=== PATIENT | female | born 1995 | race Caucasian/White ===

== ENCOUNTER 2017-03-02 11:12 | Emergency (ER) | payer MEDICAID, OTHER ==
[~2017-03-02] VITALS: Ht 172.7 cm; Wt 131.5 kg
[2017-03-02] MEDS ORDERED: GILDESS (11:44)
[2017-03-02] MEDS ORDERED: METF500T4 PO (11:45)
[2017-03-02 12:19] LABS: BILIRUBIN,URINE NEGATIVE (NEGATIVE); KETONES,URINE 4+ (NEGATIVE); LEUKOCYTE ESTERASE ,URINE 1+ (NEGATIVE); NITRITE,URINE NEGATIVE (NEGATIVE); PH,URINE 6 (5-9); PROTEIN,URINE 2+ (NEGATIVE); UROBILINOGEN,URINE 1 MG/DL (NORMAL)
[2017-03-02 12:35] LABS: SQUAMOUS EPITHELIAL CELL,UR >50 /HPF; WBC,URINE RARE /HPF
--- NOTE | 2017-03-02 13:21 | ED General ---
General Chief Complaint: Altered Mental Status Stated Complaint: N/V,STOMACH PAIN Nursing Triage Note: Pt apparently was confused at [facility] and refused to give a urine sample for UDS. Vomiting reported. Patient's mother believes she is a having a panic attack. Source of Information: Patient, Family Exam Limitations: No Limitations History of Present Illness Time Seen by Provider: 13:07 Initial Comments The patient is a 21-year-old white female accompanied by her mother. She had presented to [facility] this morning because of confusion and what seemed to be altered thought process. She had refused to give them a urine for drug analysis. She was therefore sent here for further evaluation. She steadfastly denied the use of any drugs. She does admit to having been staying with a friend who is ill. The friend is apparently a heavy marijuana smoker and has been doing so in her home. The patient also reports to nausea and vomiting. She at first thought that perhaps she had food poisoning. There is been no diarrhea no fever or sweats. She has been vomiting rather continuously and sobbing from her room. Timing/Duration: 2-3 Days Associated Systoms: Nausea/Vomiting Allergies and Home Medications Allergies Coded Allergies: No Known Drug Allergies (Unverified , 03/02/17) Home Medications Metformin HCl 500 Mg Tablet, 500 MG PO BID WITH MEALS, (Reported) [Dinorahs] , #28 (Reported) Constitutional: see HPI EENTM: no symptoms reported Respiratory: no symptoms reported Cardiovascular: no symptoms reported Gastrointestinal: nausea, vomiting Genitourinary: no symptoms reported Musculoskeletal: no symptoms reported Skin: no symptoms reported Psychiatric/Neurological: Anxiety, Numbness Hematologic/Lymphatic: No Symptoms Reported Immunological/Allergic: no symptoms reported Past Vwtkcza-Nlqbry-Yqzxfb Hx Patient Social History Alcohol Use: Denies Use Recreational Drug Use: No Smoking Status: Never a Smoker Recent Foreign Travel: No Contact w/Someone Who Travel: No Recent Infectious Disease Expo: No Reproductive System Female Reproductive Disorders: Polycystic Ovarian Dis Physical Exam Vital Signs Vital Sign - Last 12Hours 03/02/17 11:37 Temp 97.5 Pulse 88 Resp 22 B/P (MAP) 138/70 Capillary Refill : General Appearance: Mild Distress, Moderate Distress Eyes: Bilateral Eye Normal Inspection HEENT: Normal ENT Inspection Neck: Normal Inspection Respiratory: Chest Non Tender, Lungs Clear, Normal Breath Sounds, No Accessory Muscle Use, No Respiratory Distress Cardiovascular: Regular Rate, Rhythm, No Edema, No Gallop, No JVD, No Murmur, Normal Peripheral Pulses Gastrointestinal: Normal Bowel Sounds, No Organomegaly, Non Tender, Abnormal Bowel Sounds (somewhat decreased) Back: Normal Inspection, No CVA Tenderness, No Vertebral Tenderness Extremity: Normal Capillary Refill, Normal Inspection, Normal Range of Motion, Non Tender, No Calf Tenderness, No Pedal Edema Neurologic/Psychiatric: Alert, Oriented x3, No Motor/Sensory Deficits, Normal Mood/Affect Skin: Normal Color, Warm/Dry Lymphatic: No Adenopathy Comments Constant moaning and occasional sobbing Progress/Results/Core Measures Results/Orders Lab Results Laboratory Tests Test 03/02/17 12:00 Range/Units Urine Color NICOL H Urine Clarity VERY CLOUDY H Urine pH 6 5-9 Urine Specific [place] 1.025 H 1.016-1.022 Urine Protein 2+ H NEGATIVE Urine Glucose (UA) NEGATIVE NEGATIVE Urine Ketones 4+ H NEGATIVE Urine Nitrite NEGATIVE NEGATIVE Urine Bilirubin NEGATIVE NEGATIVE Urine Urobilinogen 1 NORMAL MG/DL Urine Leukocyte Esterase 1+ H NEGATIVE Urine RBC (Auto) 5+ H NEGATIVE Urine RBC 5-10 H /HPF Urine WBC RARE /HPF Urine Squamous Epithelial Cells >50 H /HPF Urine Crystals NONE /LPF Urine Amorphous Sediment MOD TIFFANY URATES H /LPF Urine Bacteria FEW H /HPF Urine Casts NONE /LPF Urine Mucus SMALL H /LPF Urine Culture Indicated NO Urine Test NEGATIVE NEGATIVE Urine Opiates Screen NEGATIVE NEGATIVE Urine Oxycodone Screen NEGATIVE NEGATIVE Urine Methadone Screen NEGATIVE NEGATIVE Urine Propoxyphene Screen NEGATIVE NEGATIVE Urine Barbiturates Screen NEGATIVE NEGATIVE Ur Tricyclic Antidepressants Screen NEGATIVE NEGATIVE Urine Phencyclidine Screen NEGATIVE NEGATIVE Urine Amphetamines Screen NEGATIVE NEGATIVE Urine Methamphetamines Screen NEGATIVE NEGATIVE Urine Benzodiazepines Screen NEGATIVE NEGATIVE Urine Cocaine Screen NEGATIVE NEGATIVE Urine Cannabinoids Screen POSITIVE H NEGATIVE My Orders Orders - VAHID FARR MD Ua Culture If Indicated (03/02/17 12:04) Hcg,Qualitative Urine (03/02/17 12:05) Drug Screen Stat (Urine) (03/02/17 12:05) Ns Iv 1000 Ml (Sodium Chloride 0.9%) (03/02/17 13:15) Ondansetron Injection (Zofran Injectio (03/02/17 13:15) Lorazepam Injection (Ativan Injection) (03/02/17 13:15) Medications Given in ED Current Medications Medications Dose Ordered Sig/Erlinda Route Start Time Stop Time Status Last Admin Dose Admin Lorazepam 1 mg ONCE ONCE IVP 03/02/17 13:15 03/02/17 13:16 DC 03/02/17 13:39 1 MG Ondansetron HCl 8 mg ONCE ONCE IVP 03/02/17 13:15 03/02/17 13:16 DC 03/02/17 13:39 8 MG Vital Signs/I&O Vital Sign - Last 12Hours 03/02/17 11:37 Temp 97.5 Pulse 88 Resp 22 B/P (MAP) 138/70 Departure Communication Progress Notes UA showed specific gravity of 1.025 consistent with dehydration. Impression Impression: Primary Impression: nausea and vomiting Disposition: HOME, SELF-CARE Condition: Improved Departure-Patient Inst. Decision time for Depature: 13:44 Referrals: PB VENCES DO (PCP) Primary Care Physician BRINA WILLARD APRN (Family) Primary Care Physician Add. Discharge Instructions: All discharge instructions reviewed with patient and/or family. Voiced understanding. Clear liquid diet for 24 hours. I suggest Gatorade and flat 7-Up in small frequent doses. If no further nausea or vomiting after that interval advanced to broth and soda crackers and from there to mashed potatoes or steamed rice with only broth embellishment, VAHID FARR MD Mar 02, 2017 13:21
[2017-03-02] MEDS: ONDANSETRON 4 MG/2 ML (SDV) Z0FRAN IVP ONE (13:39)
[2017-03-02] MEDS: LORazepam INJ 2 MG/ML (ATIVAN) VIAL IVP ONE (13:39)
[2017-03-02] MEDS: NS IV 1000 ML 1,000 ML IV SCH (13:39)
== END 2017-03-02 15:35 | disposition home or self-care (01) ==
LOC: EDUNIT# 11:12 → ER 11:14
DX: R11.2 Nausea with vomiting, unspecified (principal); Z87.42 Personal history of other diseases of the female genital tract; Z79.84 Long term (current) use of oral hypoglycemic drugs
CPT/HCPCS: 80306; 81000; 84703; 99283